=== PATIENT | male | born 2005 | race Two or more races ===

== ENCOUNTER 2023-10-13 21:20 | Emergency (ER) | payer SELFPAY ==
[~2023-10-13] VITALS: Ht 170.2 cm; Wt 61.9 kg
[~2023-10-13 21:20] MED LIST: SERT25TA74 PO
[2023-10-13 21:43] VITALS: BP 136/99; PULSE 124; RESP 15; TEMP 98.6
== END 2023-10-14 02:29 | disposition home or self-care (01) ==
LOC: ER 21:20
DX: F41.9 Anxiety disorder, unspecified (principal); F41.0 Panic disorder [episodic paroxysmal anxiety]
CPT/HCPCS: 99281

== ENCOUNTER 2023-12-23 23:30 | Emergency (ER) | payer OTHER ==
[~2023-12-23] VITALS: Ht 170.2 cm; Wt 66.0 kg
[2023-12-23] MEDS ORDERED: HYDR-459 MT (23:34)
[2023-12-23 23:39] VITALS: BP 128/90; PULSE 94; RESP 18; TEMP 98.2; O2SAT 98
[2023-12-23] MEDS ORDERED: HYDROXYZINE 25MG TABLET PO ONE (23:45)
== END 2023-12-24 00:04 | disposition home or self-care (01) ==
LOC: ER 23:30
DX: F41.9 Anxiety disorder, unspecified (principal); Z87.891 Personal history of nicotine dependence
CPT/HCPCS: 99283

== ENCOUNTER 2024-01-16 05:27 | Emergency (ER) | payer MEDICAID, OTHER ==
[~2024-01-16] VITALS: Ht 175.3 cm; Wt 75.0 kg
[~2024-01-16 05:27] MED LIST changes: +HYDR-459 MT
[2024-01-16 05:35] VITALS: O2SAT 98
[2024-01-16 08:16] LABS: BASOPHILS % 0.5 % (0.0-2.0); DIFFERENTIAL COMMENT 0; EOSINOPHILS % 1.8 % (0.0-5.0); HEMATOCRIT. 45.8 % (42.0-52.0); HEMOGLOBIN. 16.3 g/dL (14.0-18.0); LYMPHOCYTES % 26.5 % (20.0-50.0); MEAN CORPUSCULAR HEMOGLOBIN 32.4 pg (28.0-32.0); MEAN CORPUSCULAR HGB CONC 35.6 g/dL (31.0-37.0); MEAN CORPUSCULAR VOLUME 91.2 fL (80.0-94.0); MEAN PLATELET VOLUME 8.6 fl (7.4-10.4); MONOCYTES % 7.7 % (2.0-8.0); NEUTROPHILS % 63.5 % (40.0-76.0); PLATELET 288 x1000/uL (130-400); RED BLOOD CELL COUNT 5.02 mill/uL (4.7-6.1); RED CELL DISTRIBUTION WIDTH 13.2 % (11.6-14.6); WHITE BLOOD COUNT 7.8 x1000/uL (4.5-11.0)
[2024-01-16] MEDS: LORAZEPAM 1MG TABLET PO ONE (08:21)
[2024-01-16 08:28] LABS: CHLORIDE 104 mEq/L (98-107); POTASSIUM 3.9 mEq/L (3.5-5.1); SODIUM 139 mEq/L (136-145)
[2024-01-16 08:29] LABS: CALCIUM 10.4 mg/dL (8.7-10.4); CARBON DIOXIDE 28 mEq/L (21-32)
[2024-01-16 08:34] LABS: CREATININE 0.7 mg/dL (0.6-1.3); GLUCOSE 85 mg/dL (70-105)
[2024-01-16 08:35] LABS: UREA NITROGEN BLOOD 15 mg/dL (9-23)
[2024-01-16 08:36] LABS: ALANINE AMINOTRANSFERASE 15 IU/L (10-49); ALBUMIN 4.9 g/dL (3.2-4.8); ASPARTATE AMINOTRANSFERASE 18 IU/L (<34)
[2024-01-16 08:37] LABS: BILIRUBIN TOTAL 0.4 mg/dL (0.1-1.0)
[2024-01-16 09:36] VITALS: BP 126/89; PULSE 98; RESP 15; TEMP 98.5
== END 2024-01-16 09:38 | disposition home or self-care (01) ==
LOC: ER 05:27
DX: R00.2 Palpitations (principal); F41.9 Anxiety disorder, unspecified
CPT/HCPCS: 36415; 80053; 83735; 85025; 93005; 99284

== ENCOUNTER 2024-01-20 16:02 | Emergency (ER) | payer OTHER ==
[~2024-01-20] VITALS: Ht 167.6 cm; Wt 64.0 kg
[2024-01-20 16:05] VITALS: O2SAT 98
[2024-01-20 19:08] VITALS: BP 129/96; PULSE 96; RESP 18; TEMP 98.2
== END 2024-01-20 19:09 | disposition home or self-care (01) ==
LOC: ER 16:02
DX: F41.9 Anxiety disorder, unspecified (principal); R07.9 Chest pain, unspecified
CPT/HCPCS: 71045; 93005; 99283

== ENCOUNTER 2024-01-28 14:25 | Emergency (ER) | payer MEDICAID ==
[~2024-01-28] VITALS: Ht 167.6 cm; Wt 63.0 kg
[2024-01-28 14:34] VITALS: O2SAT 98
[2024-01-28 15:10] VITALS: BP 108/77; PULSE 65; RESP 16; TEMP 97.5
== END 2024-01-28 16:00 | disposition home or self-care (01) ==
LOC: ER 14:25
DX: F41.9 Anxiety disorder, unspecified (principal)
CPT/HCPCS: 99281

== ENCOUNTER 2024-01-30 18:05 | Emergency (ER) | payer MEDICAID ==
[~2024-01-30] VITALS: Ht 172.7 cm; Wt 64.0 kg
[2024-01-30 18:08] VITALS: TEMP 97.7; O2SAT 98
[2024-01-30 19:31] VITALS: BP 118/70; PULSE 80; RESP 15
== END 2024-01-30 19:32 | disposition home or self-care (01) ==
LOC: ER 18:05
DX: F41.9 Anxiety disorder, unspecified (principal)
CPT/HCPCS: 71045; 99283

== ENCOUNTER 2024-05-19 20:02 | Emergency (ER) | payer MEDICAID ==
[~2024-05-19] VITALS: Ht 172.7 cm; Wt 69.0 kg
[2024-05-19 20:11] VITALS: TEMP 98.4; O2SAT 98
[2024-05-20 01:00] VITALS: BP 110/74; PULSE 83; RESP 16; O2SAT 100
[2024-05-20] MEDS ORDERED: HYDR-3735 MT (01:06)
== END 2024-05-20 02:05 | disposition home or self-care (01) ==
LOC: ER 20:02
DX: F43.89 Other reactions to severe stress (principal); F41.9 Anxiety disorder, unspecified
CPT/HCPCS: 99283

== ENCOUNTER 2024-06-11 14:47 | Emergency (ER) | payer MEDICAID ==
[~2024-06-11] VITALS: Ht 167.6 cm; Wt 64.0 kg
[~2024-06-11 14:47] MED LIST changes: +HYDR-3735 MT
[2024-06-11 14:58] VITALS: BP 132/84; PULSE 110; RESP 16; TEMP 98.2; O2SAT 100
[2024-06-11] MEDS ORDERED: zoloft (14:58)
== END 2024-06-11 18:30 | disposition home or self-care (01) ==
LOC: ER 14:47
DX: F41.9 Anxiety disorder, unspecified (principal); R53.1 Weakness; R00.2 Palpitations
CPT/HCPCS: 99283

== ENCOUNTER 2024-07-06 19:43 | Emergency (ER) | payer MEDICAID ==
[~2024-07-06] VITALS: Ht 177.8 cm; Wt 64.0 kg
[~2024-07-06 19:43] MED LIST changes: +zoloft
[2024-07-06 20:07] VITALS: TEMP 98.1; O2SAT 99
[2024-07-06] MEDS: HYDROXYZINE 25MG TABLET PO ONE (22:00)
[2024-07-06 22:30] VITALS: BP 127/69; PULSE 85; RESP 19; O2SAT 99
== END 2024-07-06 22:35 | disposition home or self-care (01) ==
LOC: ER 19:43
DX: F41.9 Anxiety disorder, unspecified (principal)
CPT/HCPCS: 99283

== ENCOUNTER 2024-08-20 22:49 | Emergency (ER) | payer MEDICAID ==
[~2024-08-20] VITALS: Ht 177.8 cm; Wt 65.0 kg
[2024-08-20 22:57] VITALS: O2SAT 100
[2024-08-21 03:44] LABS: BASOPHILS % 0.2 % (0.0-2.0); EOSINOPHILS % 0.6 % (0.0-5.0); HEMATOCRIT. 46.9 % (42.0-52.0); LYMPHOCYTES % 23.2 % (20.0-50.0); MEAN CORPUSCULAR HEMOGLOBIN 31.1 pg (28.0-32.0); MEAN CORPUSCULAR HGB CONC 34.1 g/dL (31.0-37.0); MEAN CORPUSCULAR VOLUME 91.2 fL (80.0-94.0); MEAN PLATELET VOLUME 8.4 fl (7.4-10.4); MONOCYTES % 4.7 % (2.0-8.0); NEUTROPHILS % 71.3 % (40.0-76.0); PLATELET 286 x1000/uL (130-400); RED BLOOD CELL COUNT 5.14 mill/uL (4.7-6.1); RED CELL DISTRIBUTION WIDTH 13.1 % (11.6-14.6); WHITE BLOOD COUNT 12.1 x1000/uL (4.5-11.0)
[2024-08-21 03:54] LABS: CHLORIDE 104 mEq/L (98-107); POTASSIUM 3.6 mEq/L (3.5-5.1); SODIUM 142 mEq/L (136-145)
[2024-08-21 03:55] LABS: CALCIUM 10.1 mg/dL (8.7-10.4); CARBON DIOXIDE 28 mEq/L (21-32)
[2024-08-21 04:00] LABS: CREATININE 0.8 mg/dL (0.6-1.3); GLUCOSE 92 mg/dL (70-105); UREA NITROGEN BLOOD 16 mg/dL (9-23)
[2024-08-21 04:04] LABS: TROPONIN I HIGH SENSITIVITY < 4 ng/L (3.0-53)
[2024-08-21] MEDS: IBUPROFEN 600MG TABLET PO ONE (04:29)
[2024-08-21 05:05] VITALS: BP 127/86; PULSE 94; RESP 20; TEMP 36.72516; O2SAT 99
[2024-08-21 06:23] LABS: *AMPHETAMINES SCREEN URINE NEGATIVE (NEGATIVE); *BARBITURATES SCREEN URINE NEGATIVE (NEGATIVE); *BENZODIAZEPINES SCREEN URINE NEGATIVE (NEGATIVE); *COCAINE SCREEN URINE NEGATIVE (NEGATIVE); METHADONE URINE SCREEN NEGATIVE (NEGATIVE)
[2024-08-21 06:24] LABS: CANNABINOID URINE SCREEN NEGATIVE (NEGATIVE); ECSTASY MDMA SCREEN URINE NEGATIVE (NEGATIVE); OPIATES URINE SCREEN NEGATIVE (NEGATIVE); PHENCYCLIDINE URINE SCREEN NEGATIVE (NEGATIVE)
== END 2024-08-21 05:00 | disposition home or self-care (01) ==
LOC: ER 22:49
DX: R07.9 Chest pain, unspecified (principal); F41.9 Anxiety disorder, unspecified
CPT/HCPCS: 36415; 71045; 80048; 80305; 84484; 85025; 85379; 93005; 99285

== ENCOUNTER 2024-09-21 17:41 | Emergency (ER) | payer MEDICAID, OTHER ==
[~2024-09-21] VITALS: Ht 165.1 cm; Wt 64.0 kg
[2024-09-21 17:49] VITALS: O2SAT 98
[2024-09-21 20:34] LABS: BASOPHILS % 0.3 % (0.0-2.0); EOSINOPHILS % 0.2 % (0.0-5.0); HEMATOCRIT. 44.1 % (42.0-52.0); HEMOGLOBIN. 15.2 g/dL (14.0-18.0); LYMPHOCYTES % 10.3 % (20.0-50.0); MEAN CORPUSCULAR HEMOGLOBIN 31.6 pg (28.0-32.0); MEAN CORPUSCULAR HGB CONC 34.5 g/dL (31.0-37.0); MEAN CORPUSCULAR VOLUME 91.7 fL (80.0-94.0); MEAN PLATELET VOLUME 8.7 fl (7.4-10.4); MONOCYTES % 5.3 % (2.0-8.0); NEUTROPHILS % 83.9 % (40.0-76.0); PLATELET 242 x1000/uL (130-400); RED BLOOD CELL COUNT 4.81 mill/uL (4.7-6.1); RED CELL DISTRIBUTION WIDTH 13.1 % (11.6-14.6); WHITE BLOOD COUNT 10.5 x1000/uL (4.5-11.0)
[2024-09-21 20:41] LABS: CARBON DIOXIDE 28 mEq/L (21-32); CHLORIDE 102 mEq/L (98-107); POTASSIUM 3.5 mEq/L (3.5-5.1); SODIUM 140 mEq/L (136-145)
[2024-09-21 20:47] LABS: CREATININE 0.7 mg/dL (0.6-1.3); GLUCOSE 89 mg/dL (70-105); UREA NITROGEN BLOOD 10 mg/dL (9-23)
[2024-09-21] MEDS: MECLIZINE 25MG TABLET PO ONE (22:42)
[2024-09-21 22:43] VITALS: BP 113/77; PULSE 84; RESP 18; TEMP 36.89184; O2SAT 99
== END 2024-09-21 22:49 | disposition home or self-care (01) ==
LOC: ER 17:41
DX: R42 Dizziness and giddiness (principal); F41.9 Anxiety disorder, unspecified
CPT/HCPCS: 36415; 80048; 85025; 93005; 99284